=== PATIENT | female | born 1960 | race Caucasian/White ===

== ENCOUNTER → 2024-04-26 | Outpatient (CLI) | payer OTHER ==
--- NOTE | 2024-04-26 13:44 | CT ---
CT urogram with and without contrast HISTORY: Microscopic hematuria. COMPARISON: None TECHNIQUE: Multiple axial images obtained through the abdomen and pelvis before and after the dynamic IV contrast. Delayed postcontrast images were also obtained. FINDINGS: Lung bases are clear. There is surgical absence of gallbladder.There is no biliary ductal dilatation. There are no focal masses within the liver, pancreas, spleen or adrenal glands and there is no organo megaly. There are 3 nonobstructing right renal calcifications, largest which is 8.3 mm. the remaining 2 calc ifications are approximately 1 to 3 mm. There is moderate left hydronephrosis and hydroureter secondary to a 9.4 mm obstructing calculus in t he distal third of the left ureter. There are 3 additional nonobstructing left renal calcifications l argest of which is approximately 7.6 mm. The second largest left renal calcification 5.4 mm. With the exception of the distal left ureteral calculus, there are no filling defects within the michael al collecting systems or urinary bladder. There is a small 6 mm fat containing mass in the right renal cortex likely an angiomyolipoma. There i s no solid left renal mass. There is moderate left renal atrophy. The bowel loops are normal in caliber and there is no dilatation or obstruction. No inflammatory montalvo ges are identified in the bowel wall or mesentery. There is no free intraperitoneal air or fluid. There is no pelvic mass, free fluid, abscess or adenopathy. The osseous structures are intact. IMPRESSION: 1. Moderate left renal atrophy and moderate left renal hydronephrosis and hydroureter secondary to a 9.4 mm obstructing calculus in the distal third of the left ureter. 2. Additional nephrolithiasis as described above bilateral 3. 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
== END | disposition home or self-care (01) ==
LOC: RADCTMAIN 11:43
PROVIDERS: ATTEND Urology
DX: N39.9 Disorder of urinary system, unspecified (principal); N26.1 Atrophy of kidney (terminal); N13.2 Hydronephrosis with renal and ureteral calculous obstruction; R31.1 Benign essential microscopic hematuria; N13.4 Hydroureter
CPT/HCPCS: 74178; 74400; Q9967

== ENCOUNTER 2024-05-03 12:20 | Day surgery (SDC) | payer OTHER ==
--- NOTE | 2024-05-02 07:52 | P.HPIHPCON ---
History of Present Illness H&P Date: 05/02/24 Chief Complaint: Left ureteral stone, bilateral ureteral stone This is a 63-year-old female with history of a 9 mm left-sided distal stone. An 8 mm right-sided renal stone, and additional left-sided renal stones. Of note on the left side there is severe hydronephrosis with mild atrophy of the kidney. She does have a complicated urological history followed up with the previous urologist with history of ureteral perforation. Discussed with her I do recommend proceeding with removal of the left ureteral stone, discussed we will address the renal stone at the same setting. She is aware given her history of ureteral perforation there is a potential of a stricture, and potential I will need to stage this procedure. Discussed we will address the right-sided stones at the same setting. She is aware of the risk which include but not limited to bleeding, infection, injury to the ureter Consent for Procedure: I have explained the operation/procedure to the patient, including the risks, benefits, side effects, alternative therapies (including not receiving the proposed treatment or service), the likelihood of the patient achieving his/her goals, and potential recuperation problems for the procedure/sedation/analgesia, as well as any blood products, if indicated. I also explained to the patient the risks, benefits and side effects of the alternatives, as well as the risks related to not receiving the proposed procedure, care, treatment, or services. 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 History of Any Multi-Drug Resistant Organisms: None Reported Past Surgical History: Cholecystectomy Additional Past Surgical History / Comment(s): lithotripsy, fatty tumors, Past Anesthesia/Blood Transfusion Reactions: Postoperative Nausea & Vomiting (PONV) Smoking Status: Never smoker - Past Family History Father Family Medical History: No Reported History Medications and Allergies Home Medications Medication Instructions Recorded Confirmed Type No Known Home Medications 04/29/24 04/29/24 History Allergies Allergy/AdvReac Type Severity Reaction Status Date / Time Iodinated Contrast Media Allergy Rash/Hives Verified 04/29/24 14:55 Sulfa (Sulfonamide Allergy Rash/Hives Verified 04/29/24 14:55 Antibiotics) Surgical - Exam - General no distress, moderate pain - Eyes normal ocular movement, no pale - ENT normal nares, normal mucosa - Respiratory normal expansion, normal respiratory effort - Abdomen Abdomen: soft, non tender Assessment and Plan Assessment: OR for left-sided ureteroscopy, holmium laser lithotripsy, stone basketing and stent insertion, possible right-sided ureteroscopy with holmium laser lithotripsy, stone basketing and stent insertion
[~2024-05-03 12:20] MED LIST: HYDROmorphone 0.5 MG/0.5 ML SYRINGE IVP PRN; MIDAZOLAM 2 MG/2 ML VIAL IV PRN
--- NOTE | 2024-05-03 13:06 | XR ---
EXAMINATION TYPE: XR KUB DATE OF EXAM: 05/03/2024 12:35 PM COMPARISON: CT CLINICAL INDICATION: Female, 63 years old with history of C83.38 DIFFUSE LARGE B-CELL LYMPHOMA, LYMPH NODES; TECHNIQUE: One radiographic view of the abdomen was obtained. FINDINGS: The bowel gas pattern is nonspecific without dilated loops of small or large bowel. . Fecal material and gas are demonstrated throughout the colon and rectum. There is no evidence for organome kristian or pneumoperitoneum. No acute osseous process. Bilateral renal calculi measuring up to 6 mm on the right and 5 mm on the left. Renal calculi. Left abdomen and surgical clips present. Additional 9 mm calculus projecting over the sacrum IMPRESSION: Bilateral renal calculi with one calculus projecting sacrum. [facility], , 05/03/2024 1:04 PM
[2024-05-03] MEDS: IV FLUID CONTINUATION 1,000 ML IV ONE (14:25)
[2024-05-03] MEDS: ONDANSETRON 4 MG/2 ML VIAL IVP ONE (14:28)
[2024-05-03] MEDS: DEXAMETHASONE SOD PHOSPHATE 4 MG/ML 1 ML VIAL IV ONE (14:28)
[2024-05-03] MEDS: LACTATED RINGERS 1,000 ML IV SCH (14:29)
[2024-05-03] MEDS: SCOPOLAMINE 1 MG/72 HR PATCH TRANSDERM ONE (14:32)
[2024-05-03 14:57] LABS: African American GFR (CKD) 71 (>60 ml/min/1.73 sqM); Anion Gap 10 mmol/L; Blood Urea Nitrogen 18 mg/dL (7-17); Calcium 9.5 mg/dL (8.4-10.2); Carbon Dioxide 23 mmol/L (22-30); Chloride 102 mmol/L (98-107); Glucose 113 mg/dL (74-99); Non-African American GFR(CKD) 62 (>60 ml/min/1.73 sqM); Sodium 135 mmol/L (137-145)
[2024-05-03 14:58] LABS: Potassium 4.4 mmol/L (3.5-5.1)
[2024-05-03 15:03] LABS: HCT 47.1 % (34.0-46.0); MCH 30.2 pg (25.0-35.0); MCHC 31.8 g/dL (31.0-37.0); Mean Platelet Volume 7.6; Platelet Count 239 k/uL (150-450); RBC 4.96 m/uL (3.80-5.40); WBC 4.2 k/uL (3.8-10.6)
[2024-05-03] MEDS ORDERED: fentaNYL (PF) 50 MCG/ML 2 ML AMP ONE (15:28)
[2024-05-03] MEDS ORDERED: PHENYLEPHRINE 10 MG/ML VIAL ONE (15:28)
[2024-05-03] MEDS ORDERED: MIDAZOLAM 2 MG/2 ML VIAL ONE (15:28)
[2024-05-03] MEDS ORDERED: PROPOFOL 10 MG/ML 20 ML VIAL IV ONE (15:28)
[2024-05-03] MEDS ORDERED: LIDOCAINE 1% INJ 10MG/ML (20 ML MDV) ONE (15:28)
[2024-05-03] MEDS ORDERED: GLYCOPYRROLATE 0.2 MG/ML 2 ML VIAL ONE (15:28)
[2024-05-03] MEDS: LACTATED RINGERS 1,000 ML IV ONE (16:30)
--- NOTE | 2024-05-03 16:55 | P.OP ---
Date of Procedure: 05/03/24 Preoperative Diagnosis: Left ureteral lobe, bilateral renal stones Postoperative Diagnosis: Same Procedure(s) Performed: Cystoscopy, bilateral ureteroscopy, holmium laser lithotripsy, stone basketing and stent insertion Implants: 6 Malian by 24 cm stents in the bilateral ureter Anesthesia: JANENE Surgeon: Luca Lemon Estimated Blood Loss (ml): 5 Pathology: other (Bilateral kidney stones) Condition: stable Disposition: PACU Indications for Procedure: This is a 63-year-old female with history of a 9 mm left-sided distal stone. An 8 mm right-sided renal stone, and additional left-sided renal stones. Of note on the left side there is severe hydronephrosis with mild atrophy of the kidney. She does have a complicated urological history followed up with the previous urologist with history of ureteral perforation. Discussed with her I do recommend proceeding with removal of the left ureteral stone, discussed we will address the renal stone at the same setting. She is aware given her history of ureteral perforation there is a potential of a stricture, and potential I will need to stage this procedure. Discussed we will address the right-sided stones at the same setting. She is aware of the risk which include but not limited to bleeding, infection, injury to the ureter Operative Findings: Large stone in the left distal ureter, large stone in the left lower pole, large stone in the right lower pole Description of Procedure: Patient brought the operating room, general anesthesia was induced. She was prepped and draped in sterile fashion placed in dorsolithotomy position. Cystoscopy fitted the 21 Malian sheath was inserted per urethra, cystoscopy was performed showed normality within the bladder. Attention was then carried to the left ureteral orifice. A semirigid ureteroscope was inserted per urethra and advanced up the left ureteral orifice, at this point a stone was encountered in the distal ureter. Using the holmium laser the stone was fragmented, stone fragments were removed using the stone basket. At this time I advanced the scope all the way up to the proximal ureter which showed no sizable fragments or any additional stones, pullback ureteroscopy was performed showed no injury to the ureter or any ureteral stones, there was some edema at the site of the stone, as ureteroscope was withdrawn a sensor wire was advanced through. Next an 1113 Malian access sheath was passed over the wire into the proximal ureter. Next a flexible ureteroscope was inserted through the access sheath, renoscopy was performed showed a large stone in the lower pole. Using the holmium laser the stone was fragmented, stone fragments were removed using a stone basket. 2 additional smaller stones were seen in the upper and the midpole which were also fragmented. Repeat renoscopy showed no sizable fragments or injury to the kidney, on fluoroscopy there was no radiopaque density seen. Pullback ureteroscopy was performed showed no injury to the ureter or any ureteral stones, as ureteroscope was withdrawn a sensor wire was advanced through. Next a ureteral stent was passed over the wire, the proximal curl was visualized on fluoroscopy and the distal curl was realized in the cystoscope. Attention was then carried to the right side. The right ureter orifice was intubated with a sensor wire, the wire was advanced under fluoroscopy into the kidney. Next I advanced the ureteroscope over the wire and into the kidney, of note patient had slight narrowing at the mid ureter, but I was able to navigate the scope over the wire and into the kidney. At this time a large stone was seen in the lower pole, I attempted to use the holmium laser to fragment the stone in the lower pole but given the angle I was unable to. At this time using the stone basket the stone was repositioned to the upper pole. Using the holmium laser the stone was dusted, on repeat renoscopy showed only 1 sizable fragments but no additionar sizable fragments, on fluoroscopy no radiopaque density seen outside the sizable fragments which measured approximately 2 to 3 mm. This time using the stone basket I basketed the fragment and removed intact. On removing the fragment pullback ureteroscopy was performed showed no injury to the ureter or any ureteral stones. At this time the cystoscope was reinserted per urethra and the right ureteral orifice was intubated with a sensor wire, the wire was advanced under fluoroscopy into the kidney. Next a ureteral stent was passed over the wire, the proximal curl was visualized on fluoroscopy and the distal curl was was lysed in the cystoscope. The bladder was emptied at the end of the case. Patient tolerated procedure was taken to recovery in stable condition
[2024-05-03 17:14] VITALS: TEMP 97.4
[2024-05-03] MEDS: KETOROLAC 15 MG/ML 1 ML VIAL IVP STA (18:18)
[2024-05-03 18:25] VITALS: RESP 16
[2024-05-03 18:38] VITALS: BP 144/83; PULSE 75
--- NOTE | 2024-05-03 21:22 | FL ---
EXAMINATION TYPE: FL guidance operating room DATE OF EXAM: 05/03/2024 4:56 PM COMPARISON: Pre Operative Images if available both CT/MRI or plain film CLINICAL INDICATION: Female, 63 years old with history of CYSTOSCOPY LITHOTRPSY; TECHNIQUE: FL guidance operating room, multiple fluoroscopic images provided for procedure. DAP: 0.55616 mGym2 Gycm2 uGym2 cGycm2 or equivalent. FINDINGS: Multiple intraoperative fluoroscopic images were taken resulting in ureteral stent placement with sup erior pigtail in appropriate position projecting over the renal pelvis. No immediate intraoperative c omplication. Multilevel degeneration changes throughout the spine. IMPRESSION: 1. No evidence for intraoperative complication. 2. Please see the operative/procedural note for further details. [facility], , 05/03/2024 9:20 PM
== END 2024-05-03 18:55 ==
LOC: OR 12:20
PROVIDERS: ATTEND Urology
DX: N13.2 Hydronephrosis with renal and ureteral calculous obstruction (principal); D17.0 Benign lipomatous neoplasm of skin and subcutaneous tissue of head, face and neck; F17.200 Nicotine dependence, unspecified, uncomplicated; Z90.49 Acquired absence of other specified parts of digestive tract; Z91.041 Radiographic dye allergy status; Z88.2 Allergy status to sulfonamides; Z88.1 Allergy status to other antibiotic agents; Z79.899 Other long term (current) drug therapy
CPT/HCPCS: 80048; 85027; 82365; 74018; 52356; C1769; J2250; J1100; J0690; J2405; J2003; J3010; J1885; J2704; J2371; J1596

== ENCOUNTER → 2024-06-15 | Outpatient (CLI) | payer OTHER ==
--- NOTE | 2024-06-15 11:37 | XR ---
EXAMINATION TYPE: XR KUB DATE OF EXAM: 06/15/2024 11:16 AM COMPARISON: None. CLINICAL INDICATION: Female, 63 years old with history of N20.0 Calculus kidney, TECHNIQUE: Single view of the abdomen. FINDINGS: Right renal calculi: None Visualized. Right ureteral calculi: None Visualized. Left renal calculi: None Visualized. Left ureteral calculi: None Visualized. Pelvic calcifications: Yes Bowel gas pattern is unremarkable. No free air. No mass effects. IMPRESSION: 1. No visible renal or ureteral calculus. Probable phlebolith right hemipelvis. [facility], , 06/15/2024 11:34 AM
== END | disposition home or self-care (01) ==
LOC: RADXRMAIN 11:05
PROVIDERS: ATTEND Urology
DX: N20.0 Calculus of kidney (principal)
CPT/HCPCS: 74018